=== PATIENT | female | born 1955 | race Caucasian/White ===

== ENCOUNTER → 2019-02-28 | Outpatient (CLI) | payer BC ==
[~2019-02-28] MED LIST: ASPIR 8181 MG PO; CLONIDINE; DEXILANT PO; LISINOPRIL; METOPROLOL SUCC50 MG PO; PANTOPRAZOLE SO40 MG PO; PAROXETINE HCL20 MG PO; SYMBICORT 16010.2 GM INH; TOPROL XL PO; TRIBENZOR 20-51 EACH PO; WELLBUTRIN PO
--- NOTE | 2019-02-28 14:00 | Diagnostic Imaging Report ---
EXAM: Right upper quadrant abdominal ultrasound INDICATION: Right upper quadrant pain COMPARISON: None. TECHNIQUE: Transverse and longitudinal images of the right upper quadrant abdomen were obtained FINDINGS: Liver: Size: 14.9 cm in the right midclavicular line, normal Appearance: Increased echogenicity, smooth contour Mass: 2.7 x 2.5 x 2.9 cm anechoic cyst in the right lobe of liver. Gallbladder: An irregularly shaped heterogeneous structure near the fundus of the gallbladder with posterior shadowing measures 5.4 x 3.5 x 3.6 cm and may represent a stone versus sludge ball. A large round shadowing stone near the neck of the gallbladder measures 2.9 x 1.8 x 2.1 cm. No pericholecystic fluid. Positive sonographic Vidal's sign. Gallbladder wall measures 0.4 cm. Bile Ducts: Intrahepatic Ducts: No dilatation Extrahepatic Ducts: Common bile duct measures 0.3cm, no dilatation Pancreas: Visualized portions of the pancreatic head, neck and proximal body are normal. Kidney: The right kidney measures 8.9 cm without evidence of hydronephrosis or stone. Vessels: Aorta: Visualized portions are normal Inferior Vena Cava: Visualized portions are normal Main Portal Vein: 0.9 cm, normal size with hepatopetal flow. Free Fluid: No ascites or pleural effusion IMPRESSION: Cholelithiasis with positive sonographic Vidal's sign raising concern for acute cholecystitis. Signed by: Robert Grant MD on 02/28/2019 1:56 PM
== END ==
LOC: US 12:09
DX: R10.11 Right upper quadrant pain (principal); R11.2 Nausea with vomiting, unspecified
CPT/HCPCS: 76705

== ENCOUNTER → 2019-03-04 | Day surgery (SDC) | payer BC ==
[2019-03-02 17:00] LABS: BASOPHILS # (AUTO) 0.1 (0.0-0.1); BASOPHILS % 0.6 % (0.0-1.0); EOSINOPHILS # (AUTO) 0.3 (0.0-0.4); HEMATOCRIT 37.5 % (34.2-44.1); HEMOGLOBIN 12.1 g/dL (12.0-16.0); LYMPHOCYTES # (AUTO) 2.7 (1.0-3.2); MEAN CORPUSCULAR HEMOGLOBIN 26.5 pg (28-32); MEAN CORPUSCULAR HGB CONC 32.3 g/dL (31-35); MEAN CORPUSCULAR VOLUME 82.1 fL (81-99); MONOCYTES # (AUTO) 1.2 (0.2-0.8); MONOCYTES % 12.8 % (4.4-11.3); NEUTROPHILS # (AUTO) 5.2 (2.1-6.9); NEUTROPHILS % 55.4 % (38.7-80.0); PLATELET COUNT 274 x10e3/uL (140-360); RED BLOOD COUNT 4.57 x10e6/uL (3.6-5.1); RED CELL DISTRIBUTION WIDTH 17.2 % (11.7-14.4)
[2019-03-02 17:09] LABS: BILIRUBIN,URINE NEGATIVE (NEGATIVE); CLARITY,URINE SL CLOUDY (CLEAR); COLOR,URINE YELLOW (YELLOW); KETONES,URINE NEGATIVE (NEGATIVE); LEUKOCYTE ESTERASE ,URINE NEGATIVE (NEGATIVE); NITRITE,URINE NEGATIVE (NEGATIVE); PROTEIN,URINE DIPSTICK NEGATIVE (NEGATIVE); URINE UROBILINOGEN 0.2 mg/dL (0.2 - 1)
--- NOTE | 2019-03-02 17:10 | Diagnostic Imaging Report ---
EXAMINATION: CHEST 2 VIEWS INDICATION: Pre-operative COMPARISON: Chest CT of 02/27/2010 FINDINGS: TUBES and LINES: None. LUNGS: The lung volumes are normal. No focal consolidation or pulmonary edema. PLEURA: No pleural effusion or pneumothorax. HEART AND MEDIASTINUM: The cardiomediastinal silhouette is normal in size and contour. BONES AND SOFT TISSUES: No acute fracture or dislocation. Mild degenerative changes of the visualized spine. UPPER ABDOMEN: No free air under the diaphragm. IMPRESSION: No focal pneumonia or pulmonary edema. Signed by: Robert Grant MD on 03/02/2019 5:07 PM
[2019-03-02 17:23] LABS: ALANINE AMINOTRANSFERASE 22 IU/L (0-55); ALBUMIN 3.9 g/dL (3.5-5.0); ALBUMIN/GLOBULIN RATIO 1.1 (0.8-2.0); ALKALINE PHOSPHATASE 103 IU/L (40-150); ANION GAP 13.3 mmol/L (8-16); BLOOD UREA NITROGEN 16 mg/dL (7-26); BUN/CREATININE RATIO 18 (6-25); CALCIUM 9.8 mg/dL (8.4-10.2); CARBON DIOXIDE 28 mmol/L (22-29); CHLORIDE 101 mmol/L (98-107); CREATININE, SERUM 0.87 mg/dL (0.57-1.11); EST GLOMERULAR FILTRATION RATE > 60 ML/MIN (60-); GLUCOSE 93 mg/dL (74-118); POTASSIUM 4.3 mmol/L (3.5-5.1); SODIUM 138 mmol/L (136-145)
[~2019-03-04] MED LIST changes: +BUPIVACAINE 0.25%/EPI 30ML SDV INJ ONE; +DEXAMETHASONE SOD PHOS INJ 4 MG/ML VIAL ONE; +FENTANYL CITRATE/PF 100MCG/2 ML INJ ONE; +GLYCOPYRROLATE INJ 1MG/ 5 ML SYR ONE; +HYDROCODONE/APAP 7.5MG-325MG 1 EA TAB ONE; +LIDOCAINE HCL 2% LOCAL INJ 5 ML SDV VIAL INJ ONE; +MIDAZOLAM HCL 2 MG/2 ML VIAL ONE; +NEOSTIGMINE 5 MG/5ML SYR ONE; +ONDANSETRON HCL INJ 2MG/ML 2ML 2 MG/ML VIAL ONE; +PROPOFOL IV EMULSION 10 MG/ML 20 ML VIAL ONE; +ROCURONIUM BROMIDE 10 MG/ML 5ML VIAL ONE; +SEVOFLURANE INHAL SOLN 250 ML PEN BTL ONE
--- OUTSIDE RECORDS SUMMARY | 2019-03-04 10:03 | XMS REPORT ---
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 Allergies, Adverse Reactions, Alerts This patient has no known allergies or adverse reactions. Medications This patient has no known medications. Results Test Description Test Time Test Comments Text Results Atomic Results Result Comments CHEST 2 VIEWS 2019-03-02 17:05:00 [place] [address] Patient Name: SHAW MATAMOROS MR #: [id number] : 1955 Age/Sex: 63/F Req #: [id number] Adm Physician: Ordered by: SAUNDRA TOVAR MD Report #: [id number] Location: OR Room/Bed: Procedure: [id number] DX/CHEST 2 VIEWS Exam Date: 03/02/19 Exam Time: 1652 REPORT STATUS: Signed EXAMINATION: CHEST 2 VIEWS INDICATION: Pre-operative COMPARISON: Chest CT of 02/27/2010 FINDINGS: TUBES and LINES: None. LUNGS: The lung volumes are normal. No focal consolidation or pulmonary edema. PLEURA: No pleural effusion or pneumothorax. HEART AND MEDIASTINUM: The cardiomediastinal silhouette is normal in size and contour. BONES AND SOFT TISSUES: No acute fracture or dislocation. Mild degenerative changes of the visualized spine. UPPER ABDOMEN: No free air under the diaphragm. IMPRESSION: No focal pneumonia or pulmonary edema. Signed by: Chetan Echavarria MD on 03/02/2019 5:07 PM Dictated By: CHETAN ECHAVARRIA MD 06 Transcribed By: RASHID on 03/02/191706 COPY TO: SAUNDRA TOVAR MD GALLBLADDER 2019-02-28 13:52:00 [place] [address] Patient Name: SHAW MATAMOROS MR #: [id number] : 1955 Age/Sex: 63/F Req #: [id number] Adm Physician: Ordered by: HARRY PRYOR MD Report #: [id number] Location: US Room/Bed: Procedure: [id number] US/US GALLBLADDER Exam Date: Exam Time: REPORT STATUS: Signed EXAM: Right upper quadrant abdominal ultrasound INDICATION: Right upper quadrant pain COMPARISON: None. TECHNIQUE: Transverse and longitudinal images of the right upper quadrant abdomen were obtained FINDINGS: Liver: Size: 14.9 cm in the right midclavicular line, normal Appearance: Increased echogenicity, smooth contour Mass: 2.7 x 2.5 x 2.9 cm anechoic cyst in the right lobe of liver. Gallbladder: An irregularly shaped heterogeneou s structure near the fundus of the gallbladder with posterior shadowing measures 5.4 x 3.5 x 3.6 cm and may represent a stone versus sludge ball. A large round shadowing stone near the neck of the gallbladder measures 2.9 x 1.8 x 2.1 cm. No pericholecystic fluid. Positive sonographic Vidal's sign. Gallbladder wall measures 0.4 cm. Bile Ducts: Intrahepatic Ducts: No dilatation Extrahepatic Ducts: Common bile duct measures 0.3cm, no dilatation Pancreas: Visualized portions of the pancreatic head, neck and proximal body are normal. Kidney: The right kidney measures 8.9 cm without evidence of hydronephrosis or stone. Vessels: Aorta: Visualized portions are normal Inferior Vena Cava: Visualized portions are normal Main Portal Vein: 0.9 cm, normal size with hepatopetal flow. Free Fluid: No ascites or pleural effusion IMPRESSION: Cholelithiasis with positive sonographic Vidal's sign raising concern for acute cholecystitis. Signed by: Chetan Echavarria MD on 02/28/2019 1:56 PM Dictated By: CHETAN ECHAVARRIA MD 1356 Transcribed By: RASHID on 02/28/19 1356 COPY TO: HARRY PRYOR MD SCR MAMM BILATERAL MORE CAD DIGITAL 2018-07-14 15:51:40 - SCR MAMM BILATERAL MORE CAD DIGITALBILATERAL DIGITAL SCREENING MAMMOGRAM 3D/2D WITH CAD: 07/06/2018CLINICAL: Asymptomatic. Digital breast tomosynthesis was performed in addition to routine CC and MLO views. Current mammographic images were evaluated by either a [employer] M-Vu or a [employer] ImageSED Weber CAD (computer aided detection system). Comparison is made to exams dated 06/24/2016 mammogram, 06/2015 mammogram, and 02/02/2013 mammogram - [facility]. The tissue of both breasts is predominantly fatty. There is vascular calcification in both breasts. There also are stable benign-appearing asymmetries in the left breast. No suspicious new mass, architectural distortion, malignant type calcification, or lymph node abnormality detected. Breast architecture is stable compared to prior exams.IMPRESSION: BENIGNThere is no mammographic evidence of malignancy. Resume annual screening mammography in one year. Kieran Rousseau M.D. rb/:07/14/2018 15:51:40 Online Facilitator: Katt RENE, [facility]-FWletter sent: BIRADS 1-2 Normal Mammogram BI-RADS: 2 Benign CHEST 2 VIEWS [place] [address] Patient Name: SHAW MATAMOROS MR #: [id number] : 1955 Age/Sex: 62/F Req #: [id number] [facility] Physician: Ordered by: HARRY PRYOR MD Report #: [id number] Location: [facility] Room/Bed: Procedure: [id number] DX/CHEST 2 VIEWS Exam Date: 06/02/17 Exam Time: 1355 REPORT STATUS: Signed PROCEDURE: Frontal and lateral views of the chest. COMPARISON: Chest x-ray of 06/25/2016. INDICATIONS: Bronchial asthma FINDINGS: Lines/tubes: None. Lungs: Lungs remain hyperinflated. Mild peribronchial cuffing is increased and central pulmonary venous congestion. There is no evidence of pneumonia or pulmonary edema. Pleura: There is no pleural effusion or pneumothorax. Heart and mediastinum: The heart and the mediastinum are normal. Bones: No acute bony abnormality. IMPRESSION: Mild peribronchial cuffing, likely viral etiology or reactive airway. Dictated by: Calli Collier M.D. on 06/02/2017 at 16:03 Electronically approved by: Calli Collier M.D. on 06/02/2017 at 16:03 Dictated By: CALLI COLLIER MD 1600 Transcribed By: TRACI on 06/02/17 160 COPY TO: HARRY PRYOR MD
[2019-03-04 15:27] VITALS: BP 138/74
--- NOTE | 2019-03-04 15:50 | Operative Report ---
DATE OF PROCEDURE: 03/04/2019 SURGEON: Abel Gamble MD POSTOPERATIVE DIAGNOSES: 1. Cholecystitis. 2. Cholelithiasis. POSTOPERATIVE DIAGNOSES: 1. Cholecystitis. 2. Cholelithiasis. OPERATION PERFORMED: Laparoscopic cholecystectomy. ASSISTANTS: Dr. Jose Luis Gamble and TABITHA Olivia. ANESTHESIA: General. COMPLICATIONS: None. ESTIMATED BLOOD LOSS: Minimal. DESCRIPTION OF PROCEDURE: With the patient lying in bed in the supine position under good general endotracheal anesthesia, the abdomen was prepped with Betadine solution and draped in the usual manner. A Veress needle was introduced into the umbilicus and pneumoperitoneum was established without any difficulty. An 11 mm trocar was placed into the umbilicus and a 10 mm video laparoscope was placed into the intra-abdominal cavity. Under direct vision, three 5 mm trocars were placed in the right subcostal region. An extra 5 mm trocar was placed in the left upper abdomen to retract the redundant stomach and transverse colon. Video laparoscopy at this point revealed a gallbladder that contained multiple stones. The duodenum was stuck to the lower half of the gallbladder. The liver showed some signs of some fatty infiltration, but other than that the rest of the abdominal exploration looked to be within normal limits. The adhesions to the neck of the gallbladder were then slowly and carefully taken down. The peritoneum overlying the neck of the gallbladder was then opened and the cystic duct was identified. The cystic duct was followed to its junction with the common duct. The cystic duct was then circumferentially dissected away from the common duct, doubly clipped and divided. The cystic artery was similarly doubly clipped and divided. The gallbladder was then slowly and carefully taken off the liver bed using the cautery scissors and perfect hemostasis was ascertained. The gallbladder was then grasped through the umbilical port and removed without any difficulty. Video laparoscopy was then again carried out, the liver bed was found to be perfectly dry. All of the excess fluid was aspirated. The pneumoperitoneum was evacuated and all the trocars were removed under direct vision. The midline fascia at the umbilicus was then closed with a [id number] of 0-Vicryl. All layers were infiltrated on the way out with solution of 0.25% Marcaine. Subcutaneous tissue was approximated with 3-0 Vicryl and the skin was closed with subcuticular 5-0 Vicryl. Benzoin, Steri-Strips, and Band-Aids were applied. The sponge, lap, and needle count was correct. The patient tolerated the procedure well and returned to the recovery room in stable condition. MD CHRISTIANE Santos/REINA /[id number]
== END | disposition home or self-care (01) ==
LOC: OR 09:53
PROVIDERS: ATTEND Surgery
DX: K80.10 Calculus of gallbladder with chronic cholecystitis without obstruction (principal); K82.8 Other specified diseases of gallbladder; Z01.810 Encounter for preprocedural cardiovascular examination; Z01.812 Encounter for preprocedural laboratory examination; Z01.811 Encounter for preprocedural respiratory examination; Z88.0 Allergy status to penicillin; I10 Essential (primary) hypertension; G47.33 Obstructive sleep apnea (adult) (pediatric); J45.909 Unspecified asthma, uncomplicated; E66.01 Morbid (severe) obesity due to excess calories
CPT/HCPCS: 36415; 47562; 71046; 80053; 81003; 85025; 88304; 93005; C1766; J1100; J2001; J2250; J2405; J2704; J3010; J3490